=== PATIENT | female | born 1995 | race Caucasian/White ===

== ENCOUNTER 2017-10-05 04:54 | Inpatient (IN) | payer BC ==
[2017-10-05] MEDS ORDERED: Sodium Chloride 0.9% 10 ML Syringe FLUSH PRN (05:13)
[2017-10-05] MEDS ORDERED: ceFAZolin 1 GM in Premix Bag 1 BAG IV ONE (05:13)
[2017-10-05] MEDS ORDERED: Sodium Chloride 0.9% 2.5 ML Syringe FLUSH PRN (05:13)
[2017-10-05] MEDS ORDERED: Oxytocin/0.9 % Sodium Chloride 30 UNIT/500 ML BAG IV SCH (05:15)
[2017-10-05] MEDS ORDERED: Citric Acid/Sodium Citrate Solution 30 ML Cup PO SCH (05:15)
[2017-10-05] MEDS: Lactated Ringers 1,000 ML IV SCH ×4 (05:30→21:10)
[2017-10-05] MEDS ORDERED: Morphine 10 MG/ML Syringe ONE (06:48)
[2017-10-05] MEDS ORDERED: Phenylephrine 1% 10 MG/ML SDV ONE ×2 (06:49→06:54)
[2017-10-05] MEDS ORDERED: Ondansetron 4 MG/2 ML SDV ONE (06:49)
[2017-10-05] MEDS ORDERED: Morphine PF 1 MG/ML Amp ONE (07:02)
--- NOTE | 2017-10-05 07:39 | PCM.PREANE ---
Preanesthetic Assessment - Anesthesia/Transfusion/Family Hx Anesthesia History: Prior Anesthesia Without Reaction Family History of Anesthesia Reaction: No Transfusion History: No Prior Transfusion(s) - Review of Systems General: No Symptoms Pulmonary: No Symptoms Cardiovascular: No Symptoms Gastrointestinal: No Symptoms Neurological: No Symptoms Other: Reports: None - Physical Assessment NPO Status Date: 10/04/17 Height: 1.57 m Weight: 70.307 kg ASA Class: 2 Mental Status: Alert & Oriented x3 Airway Class: Mallampati = 2 Dentition: Reports: Normal Dentition ROM/Head Extension: Full Lungs: Clear to Auscultation, Normal Respiratory Effort Cardiovascular: Regular Rate, Regular Rhythm - Lab Values: Laboratory Last Values WBC 6.97 K/uL (4.0-11.0) 10/05/17 05:23 RBC 4.11 M/uL (4.30-5.90) L 10/05/17 05:23 Hgb 10.5 g/dL (12.0-16.0) L 10/05/17 05:23 Hct 34.0 % (36.0-46.0) L 10/05/17 05:23 MCV 82.7 fL (80.0-98.0) 10/05/17 05:23 MCH 25.5 pg (27.0-32.0) L 10/05/17 05:23 MCHC 30.9 g/dL (31.0-37.0) L 10/05/17 05:23 RDW Std Deviation 44.1 fl (28.0-62.0) 10/05/17 05:23 RDW Coeff of Kelly 15 % (11.0-15.0) 10/05/17 05:23 Plt Count 228 K/uL (150-400) 10/05/17 05:23 MPV 10.40 fL (7.40-12.00) 10/05/17 05:23 Nucleated RBC % 0.0 /100WBC 10/05/17 05:23 Nucleated RBCs # 0 K/uL 10/05/17 05:23 Blood Type A POSITIVE 10/05/17 05:23 Antibody Screen NEGATIVE 10/05/17 05:23 - Allergies Allergies/Adverse Reactions: Allergies Allergy/AdvReac Type Severity Reaction Status Date / Time No Known Allergies Allergy Verified 10/05/17 05:12 - Anesthesia Plan Pre-Op Medication Ordered: Antacids - Acknowledgements Anesthesia Type Planned: Spinal Pt an Appropriate Candidate for the Planned Anesthesia: Yes Alternatives and Risks of Anesthesia Discussed w Pt/Guardian: Yes Pt/Guardian Understands and Agrees with Anesthesia Plan: Yes Additional Comments: repeat elective c section 39 weeks, no problems except polyhydramnios. meds zofran and colase NKDA. npo 2100, 70 kg 5'2". 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: - Past Surgical History Head Surgeries/Procedures: Reports: None HEENT Surgical History: Reports: Oral Surgery, Tonsillectomy Other HEENT Surgeries/Procedures: [place] teeth removal Female Surgical History: Reports: Section - SUBSTANCE USE Smoking Status *Q: Never Smoker Second Hand Smoke Exposure: No Recreational Drug Use History: No - HOME MEDS Home Medications: Home Meds Ondansetron [Zofran ODT] 4 mg PO ONETIME 03/04/15 [History] PNV95/Ferrous Fumarate/FA [ Vitamins Tablet] 1 tab DAILY 03/04/15 [ History] Docusate Sodium [Colace] 1 tab PO DAILY 10/01/17 [History] - CURRENT (IN HOUSE) MEDS Current Meds: Current Medications Citric Acid/Sodium Citrate (Bicitra Solution) 30 ml PO .ONCE GEO Lactated Ringer's (Ringers, Lactated) 1,000 mls @ 500 mls/hr IV .BOLUS GEO Last Admin: 10/05/17 07:06 Dose: 150 mls/hr Oxytocin/Sodium Chloride (Oxytocin 30 Unit/500 Ml-Ns) 30 unit in 500 mls @ 250 mls/hr IV TITRATE GEO Sodium Chloride (Saline Flush) 10 ml FLUSH ASDIRECTED PRN PRN Reason: Keep Vein Open Sodium Chloride (Saline Flush) 2.5 ml FLUSH ASDIRECTED PRN PRN Reason: Keep Vein Open Discontinued Medications Cefazolin Sodium/Dextrose 1 gm (/ Premix) 50 mls @ 100 mls/hr IV ONETIME ONE Stop: 10/05/17 05:42 Cefazolin Sodium/Dextrose (Ancef) Confirm Administered Dose 50 mls @ as directed .ROUTE .STK-MED ONE Stop: 10/05/17 07:27 Morphine Sulfate (Morphine) Confirm Administered Dose 10 mg .ROUTE .[facility]-MED ONE Stop: 10/05/17 06:49 Morphine Sulfate (Duramorph Pf) Confirm Administered Dose 1 mg .ROUTE .[facility]-MED ONE Stop: 10/05/17 07:03 Ondansetron HCl (Zofran) Confirm Administered Dose 4 mg .ROUTE .[facility]-MED ONE Stop: 10/05/17 06:50 Phenylephrine HCl (Shan-Synephrine) Confirm Administered Dose 10 mg .ROUTE .[facility]- MED ONE Stop: 10/05/17 06:50 Phenylephrine HCl (Shan-Synephrine) Confirm Administered Dose 10 mg .[facility] Stop: 10/05/17 06:55
[2017-10-05] MEDS ORDERED: Midazolam 1 MG/ML 2 ML SDV ONE (08:30)
[2017-10-05] MEDS ORDERED: Oxytocin 10 Units/1 ML SDV ONE (08:30)
[2017-10-05] MEDS ORDERED: Aluminum Hydroxide/Magnesium Hydroxide/Simethicone Susp 30 ML Cup PO PRN (08:45)
[2017-10-05] MEDS ORDERED: Simethicone 80 MG Tab.Chew PO PRN (08:45)
[2017-10-05] MEDS ORDERED: Bisacodyl 10 MG Supp RECTAL PRN (08:45)
[2017-10-05] MEDS ORDERED: Ondansetron 4 MG/2 ML SDV IV PRN (08:45)
[2017-10-05] MEDS ORDERED: Acetaminophen/oxyCODONE 325-5 MG Tab PO PRN ×2 (08:45→09:00)
[2017-10-05] MEDS ORDERED: diphenhydrAMINE 50 MG/ML SDV IVPUSH PRN (08:45)
[2017-10-05] MEDS ORDERED: Lanolin 100% Cream 7 GM Tube TOP PRN (08:45)
--- NOTE | 2017-10-05 08:53 | PCM.OPNOTE ---
- General Post-Op/Procedure Note Date of Surgery/Procedure: 10/05/17 Operative Procedure(s): Repeat LTCS Findings: Term male APGARs 9, 9 weight 4280 gm. Intact placenta with 3 V cord, normal appearing pelvis Pre Op Diagnosis: Previous c section, desires repeat. Polyhydramnios, LGA fetus Post-Op Diagnosis: Same Anesthesia Technique: Spinal Primary Surgeon: Jennifer Isaac Fluid Replacement, Intraop: 1,500 EBL in mLs: 500 Complications: none known Condition: Good Free Text/Narrative:: Dictation [id number]
--- NOTE | 2017-10-05 08:57 | PCM48HPAN ---
Post Anesthesia Note - EVALUATION WITHIN 48HRS OF ANESTHETIC Vital Signs in Normal Range: Yes Patient Participated in Evaluation: Yes Respiratory Function Stable: Yes Airway Patent: Yes Cardiovascular Function Stable: Yes Hydration Status Stable: Yes Pain Control Satisfactory: Yes Nausea and Vomiting Control Satisfactory: Yes Mental Status Recovered: Yes
[2017-10-05] MEDS ORDERED: Nalbuphine 10 MG/1 ML Vial IVPUSH PRN (09:00)
[2017-10-05] MEDS ORDERED: fentaNYL 100 MCG/2 ML SDV IVPUSH PRN (09:00)
[2017-10-05] MEDS: Ketorolac 30 MG/ML SDV IVPUSH SCH ×3 (09:05→21:07)
--- NOTE | 2017-10-05 12:43 | OR ---
SURGEON: Jennifer Isaac M.D. DATE OF PROCEDURE: 10/05/2017 PREOPERATIVE DIAGNOSES: 1. A 39-week intrauterine . 2. Previous section, desires repeat. 3. Polyhydramnios and LGA fetus. PROCEDURE: Repeat low transverse section. ANESTHESIA: Spinal. ESTIMATED BLOOD LOSS: 500 mL. FLUIDS: 1500 mL crystalloid. COMPLICATIONS: None. FINDINGS: Term male, score 9 at 1 minute, 9 at 5 minute. Weight of 4280 g. Intact placenta, 3-vessel cord. Normal appearing pelvis. DISPOSITION: The patient to PACU and infant to nursery in stable condition. PROCEDURE IN DETAIL: Viv is a 22-year-old, G2, P1, at 39 weeks gestation, who presents today for scheduled repeat delivery. Risks of the procedure have been discussed with her and proper consent obtained. The patient was taken to the operating room, where she underwent spinal anesthetic, was placed in dorsal spine position, leftward tilt. SCDs lower extremities. Powell to gravity. Prepped and draped in the usual sterile fashion. Ancef was delivered via IV. Time out was performed. After being prepped and draped in the usual sterile fashion, anesthesia was tested and found to be adequate. Previous Pfannenstiel scar was now excised. Subcutaneous tissue was incised down to the level of the rectus fascia, which was incised in midline, lateralized on either side sharply and bluntly. The superior aspect of fascia was tented up, dissected sharply and bluntly away from underlying muscle. In the similar aspect, performed the inferior aspect of the fascia. Rectus muscles were in the midline, peritoneum was tented up, and entered sharply. Rectus muscle and peritoneum were now lateralized bluntly. Uterine position and position palpated. Self-retaining retractor now gently placed. Bladder flap was created sharply and bluntly. The bladder was mobilized away from the lower uterine segment. Low transverse hysterotomy was now performed. Uterine cavity was entered with the blunt end of scalpel. Amniotomy revealed a large amount of clear fluid as expected. The infant's head was flexed and fundal pressure was applied. The head was delivered followed by anterior shoulder, posterior shoulder, and remainder of the body without difficulty. The infant's oropharynx and nares bulb suctioned. Cord clamped x2 and cut. Infant was handed off to attending nursing staff. Cord arterial, cord venous, cord blood sampling was obtained. The placenta was now delivered. Uterine cavity was cleared of all clot and debris. Hysterotomy was repaired using 0 Vicryl in continuous running locked fashion followed by re-imbricating layer. Area of oozing along the midline was replicated with two [id number] sutures. Hemostasis thereafter evident. Posterior aspect of the uterus inspected, no defects or hematomas found to be forming. Regions were well irrigated, suction dried. Uterus was returned to the abdominal cavity. Colonic gutters were cleared of all clot and debris, well irrigated suction dried. Hysterotomy once again inspected and found to be hemostatic. Self-retaining retractor now gently removed. Retractors were placed. Hysterotomy once again inspected and found to be hemostatic. The rectus muscles were now reapproximated using 0 Vicryl in inverted mattress suture technique. Anterior aspect of the muscle and posterior aspect of the fascia closely inspected. Any areas of oozing were cauterized. The fascia was reapproximated using 0 Vicryl in continuous running fashion beginning laterally on either side and meeting in the midline. Subcutaneous tissue was now well irrigated and suction dried. Any areas of oozing were cauterized. The skin edges were reapproximated using 3-0 Vicryl in subcuticular fashion on a Luis needle and re-imbricated with 1/2-inch Steri-Strips Mastisol. Uterus remained firm. Hemostasis appeared evident. Sponge count, needle count, and instrument count was correct x2. The patient will go to PACU in stable condition. in nursery. ENID / LEX /[id number]
[2017-10-05] MEDS: Docusate Sodium 100 MG Cap PO SCH (21:04)
[2017-10-06] MEDS: Ketorolac 30 MG/ML SDV IVPUSH SCH ×2 (02:38→08:38)
[2017-10-06] MEDS: Docusate Sodium 100 MG Cap PO SCH ×3 (08:38→20:46)
[2017-10-06] MEDS: Acetaminophen/oxyCODONE 325-5 MG Tab PO PRN ×2 (10:22→19:34)
--- NOTE | 2017-10-06 11:06 | PCM.PNPP ---
- General Info Date of Service: 10/06/17 Functional Status: Reports: Pain Controlled, Tolerating Diet, Ambulating, Urinating - Review of Systems General: Denies: Fever, Weakness Cardiovascular: Denies: Palpitations, Lightheadedness Gastrointestinal: Reports: Abdominal Pain (incisional, pain medicine helps alleviate) Genitourinary: Denies: Flank Pain Neurological: Denies: Headache Psychiatric: Reports: No Symptoms - General Info Date of Service: 10/06/17 - Patient Data Vital Signs - Most Recent: Last Vital Signs Temp 36.9 C 10/06/17 07:40 Pulse 82 10/06/17 07:40 Resp 16 10/06/17 07:40 BP 108/63 10/06/17 07:40 Pulse Ox 97 10/06/17 07:40 Weight - Most Recent: 70.307 kg I&O - Last 24 Hours: Intake & Output 10/05/17 10/06/17 10/06/17 22:59 06:59 14:59 Intake Total 1780 Output Total 800 1500 400 Balance 980 -1500 -400 Lab Results - Last 24 Hours: Laboratory Results - last 24 hr 10/06/17 Range/Units 05:49 Hgb 9.3 L (12.0-16.0) g/dL Hct 29.9 L (36.0-46.0) % Med Orders - Current: Current Medications Al Hydroxide/Mg Hydroxide (Mag-Al Plus) 30 ml PO Q8H PRN PRN Reason: Heartburn Bisacodyl (Dulcolax) 10 mg RECTAL .ONCE PRN PRN Reason: Constipation Citric Acid/Sodium Citrate (Bicitra Solution) 30 ml PO .ONCE GEO Last Admin: 10/05/17 07:42 Dose: 30 ml Diphenhydramine HCl (Benadryl) 25 mg IVPUSH Q6H PRN PRN Reason: Itching or Nausea Last Admin: 10/05/17 12:31 Dose: 25 mg Docusate Sodium (Colace) 100 mg PO BID [facility] Last Admin: 10/06/17 09:12 Dose: Not Given Emollient Ointment (Lansinoh Hpa) 0 gm TOP ASDIRECTED PRN PRN Reason: Sore Nipples Lactated Ringer's (Ringers, Lactated) 1,000 mls @ 500 mls/hr IV .BOLUS [facility] Last Admin: 10/05/17 07:06 Dose: 150 mls/hr Oxytocin/Sodium Chloride (Oxytocin 30 Unit/500 Ml-Ns) 30 unit in 500 mls @ 250 mls/hr IV TITRATE [facility] Lactated Ringer's (Ringers, Lactated) 1,000 mls @ 125 mls/hr IV ASDIRECTED [facility] Last Admin: 10/05/17 21:10 Dose: 125 mls/hr Ibuprofen (Motrin) 800 mg PO Q8H PRN PRN Reason: mild pain or fever Ondansetron HCl (Zofran) 4 mg IV Q4H PRN PRN Reason: Nausea/Vomiting Oxycodone/Acetaminophen (Percocet 325-5 Mg) 1 tab PO Q4H PRN PRN Reason: Pain (moderate 4-6) Oxycodone/Acetaminophen (Percocet 325-5 Mg) 2 tab PO Q4H PRN PRN Reason: Pain (moderate 4-6) Last Admin: 10/06/17 10:22 Dose: 2 tab Oxycodone/Acetaminophen (Percocet 325-5 Mg) 1 tab PO ONETIME PRN PRN Reason: Pain (moderate 4-6) Simethicone (Simethicone) 80 mg PO Q4H PRN PRN Reason: Gas Sodium Chloride (Saline Flush) 10 ml FLUSH ASDIRECTED PRN PRN Reason: Keep Vein Open Sodium Chloride (Saline Flush) 2.5 ml FLUSH ASDIRECTED PRN PRN Reason: Keep Vein Open Discontinued Medications Fentanyl (Sublimaze) 50 mcg IVPUSH Q5M PRN PRN Reason: Pain (severe 7-10) Stop: 10/06/17 09:01 Cefazolin Sodium/Dextrose 1 gm (/ Premix) 50 mls @ 100 mls/hr IV ONETIME ONE Stop: 10/05/17 05:42 Last Admin: 10/06/17 00:36 Dose: Not Given Cefazolin Sodium/Dextrose (Ancef) Confirm Administered Dose 50 mls @ as directed .ROUTE .STK-MED ONE Stop: 10/05/17 07:27 Ketorolac Tromethamine (Toradol) 30 mg IVPUSH Q6H [facility] Stop: 10/06/17 08:46 Last Admin: 10/06/17 08:38 Dose: 30 mg Midazolam HCl (Versed 1 Mg/Ml) Confirm Administered Dose 2 mg .ROUTE .STK-MED ONE Stop: 10/05/17 08:31 Morphine Sulfate (Morphine) Confirm Administered Dose 10 mg .ROUTE .STK-MED ONE Stop: 10/05/17 06:49 Morphine Sulfate (Duramorph Pf) Confirm Administered Dose 1 mg .ROUTE .STK-MED ONE Stop: 10/05/17 07:03 Nalbuphine HCl (Nubain) 2.5 mg IVPUSH Q3H PRN PRN Reason: Pruritis Stop: 10/06/17 09:01 Ondansetron HCl (Zofran) Confirm Administered Dose 4 mg .ROUTE .STK-MED ONE Stop: 10/05/17 06:50 Oxytocin (Pitocin) Confirm Administered Dose 20 unit .ROUTE .STK-MED ONE Stop: 10/05/17 08:31 Phenylephrine HCl (Shan-Synephrine) Confirm Administered Dose 10 mg .ROUTE .STK- MED ONE Stop: 10/05/17 06:50 Phenylephrine HCl (Shan-Synephrine) Confirm Administered Dose 10 mg .ROUTE .STK- MED ONE Stop: 10/05/17 06:55 - Infant Interaction Infant Disposition, : in Room with Family Support Person: - Recovery Exam Fundal Tone: Firm Fundal Level: 1 Fingerbreadths Below Umbilicus Fundal Placement: Midline Lochia Amount: Scant Lochia Color: Rubra/Red Perineum Description: Intact, Minimal Bruising/Swelling Episiotomy/Laceration: None Bladder Status: Indwelling Catheter in Place Urinary Elimination: Indwelling Catheter - Exam General: Alert, Oriented Lungs: Normal Respiratory Effort Cardiovascular: Regular Rate, Regular Rhythm GI/Abdominal Exam: Normal Bowel Sounds, Soft, No Distention. No: Guarding, Rigid Extremities: Pedal Edema (trace) Skin: Warm, Dry, Intact Wound/Incisions: Healing Well, No Drainage. No: Erythema Psy/Mental Status: Alert, Normal Affect - Problem List & Annotations (1) delivery delivered SNOMED Code(s): 634710175 Code(s): O82 - ENCOUNTER FOR DELIVERY WITHOUT INDICATION Status: Acute Current Visit: Yes - Problem List Review Problem List Initiated/Reviewed/Updated: Yes - My Orders Last 24 Hours: My Active Orders 10/05/17 Dinner Regular Diet [DIET] - Assessment Assessment:: POD 1 status post repeat LTCS - Plan Plan:: Continue postoperative cares, ambulate halls today. Stable overall.
[2017-10-06] MEDS: Ibuprofen 800 MG Tab PO PRN ×2 (14:21→22:41)
[2017-10-07] MEDS: Acetaminophen/oxyCODONE 325-5 MG Tab PO PRN (05:51)
--- NOTE | 2017-10-07 08:59 | PCM.PNPP ---
- General Info Date of Service: 10/07/17 Functional Status: Reports: Pain Controlled, Tolerating Diet, Ambulating, Urinating - Review of Systems General: Denies: Fever Pulmonary: Denies: Shortness of Breath Cardiovascular: Denies: Chest Pain, Palpitations, Lightheadedness Gastrointestinal: Denies: Diarrhea, Nausea, Vomiting Genitourinary: Denies: Flank Pain Psychiatric: Reports: No Symptoms - General Info Date of Service: 10/07/17 - Patient Data Vital Signs - Most Recent: Last Vital Signs Temp 36.4 C 10/07/17 05:30 Pulse 70 10/07/17 05:30 Resp 17 10/07/17 05:30 BP 111/71 10/07/17 05:30 Pulse Ox 98 10/07/17 05:30 Weight - Most Recent: 70.307 kg Med Orders - Current: Current Medications Al Hydroxide/Mg Hydroxide (Mag-Al Plus) 30 ml PO Q8H PRN PRN Reason: Heartburn Bisacodyl (Dulcolax) 10 mg RECTAL .ONCE PRN PRN Reason: Constipation Citric Acid/Sodium Citrate (Bicitra Solution) 30 ml PO .ONCE [facility] Last Admin: 10/05/17 07:42 Dose: 30 ml Diphenhydramine HCl (Benadryl) 25 mg IVPUSH Q6H PRN PRN Reason: Itching or Nausea Last Admin: 10/05/17 12:31 Dose: 25 mg Docusate Sodium (Colace) 100 mg PO BID GEO Last Admin: 10/06/17 20:46 Dose: 100 mg Emollient Ointment (Lansinoh Hpa) 0 gm TOP ASDIRECTED PRN PRN Reason: Sore Nipples Lactated Ringer's (Ringers, Lactated) 1,000 mls @ 500 mls/hr IV .BOLUS [facility] Last Admin: 10/05/17 07:06 Dose: 150 mls/hr Oxytocin/Sodium Chloride (Oxytocin 30 Unit/500 Ml-Ns) 30 unit in 500 mls @ 250 mls/hr IV TITRATE GEO Lactated Ringer's (Ringers, Lactated) 1,000 mls @ 125 mls/hr IV ASDIRECTED [facility] Last Admin: 10/05/17 21:10 Dose: 125 mls/hr Ibuprofen (Motrin) 800 mg PO Q8H PRN PRN Reason: mild pain or fever Last Admin: 10/06/17 22:41 Dose: 800 mg Ondansetron HCl (Zofran) 4 mg IV Q4H PRN PRN Reason: Nausea/Vomiting Oxycodone/Acetaminophen (Percocet 325-5 Mg) 1 tab PO Q4H PRN PRN Reason: Pain (moderate 4-6) Last Admin: 10/06/17 14:21 Dose: 1 tab Oxycodone/Acetaminophen (Percocet 325-5 Mg) 2 tab PO Q4H PRN PRN Reason: Pain (moderate 4-6) Last Admin: 10/07/17 05:51 Dose: 2 tab Oxycodone/Acetaminophen (Percocet 325-5 Mg) 1 tab PO ONETIME PRN PRN Reason: Pain (moderate 4-6) Simethicone (Simethicone) 80 mg PO Q4H PRN PRN Reason: Gas Sodium Chloride (Saline Flush) 10 ml FLUSH ASDIRECTED PRN PRN Reason: Keep Vein Open Sodium Chloride (Saline Flush) 2.5 ml FLUSH ASDIRECTED PRN PRN Reason: Keep Vein Open Discontinued Medications Fentanyl (Sublimaze) 50 mcg IVPUSH Q5M PRN PRN Reason: Pain (severe 7-10) Stop: 10/06/17 09:01 Cefazolin Sodium/Dextrose 1 gm (/ Premix) 50 mls @ 100 mls/hr IV ONETIME ONE Stop: 10/05/17 05:42 Last Admin: 10/06/17 00:36 Dose: Not Given Cefazolin Sodium/Dextrose (Ancef) Confirm Administered Dose 50 mls @ as directed .ROUTE .STK-MED ONE Stop: 10/05/17 07:27 Ketorolac Tromethamine (Toradol) 30 mg IVPUSH Q6H GEO Stop: 10/06/17 08:46 Last Admin: 10/06/17 08:38 Dose: 30 mg Midazolam HCl (Versed 1 Mg/Ml) Confirm Administered Dose 2 mg .ROUTE .STK-MED ONE Stop: 10/05/17 08:31 Morphine Sulfate (Morphine) Confirm Administered Dose 10 mg .ROUTE .STK-MED ONE Stop: 10/05/17 06:49 Morphine Sulfate (Duramorph Pf) Confirm Administered Dose 1 mg .ROUTE .STK-MED ONE Stop: 10/05/17 07:03 Nalbuphine HCl (Nubain) 2.5 mg IVPUSH Q3H PRN PRN Reason: Pruritis Stop: 10/06/17 09:01 Ondansetron HCl (Zofran) Confirm Administered Dose 4 mg .ROUTE .STK-MED ONE Stop: 10/05/17 06:50 Oxytocin (Pitocin) Confirm Administered Dose 20 unit .ROUTE .STK-MED ONE Stop: 10/05/17 08:31 Phenylephrine HCl (Shan-Synephrine) Confirm Administered Dose 10 mg .ROUTE .STK- MED ONE Stop: 10/05/17 06:50 Phenylephrine HCl (Shan-Synephrine) Confirm Administered Dose 10 mg .ROUTE .STK- MED ONE Stop: 10/05/17 06:55 - Infant Interaction Infant Disposition, : [place] in Room with Family Support Person: - Recovery Exam Fundal Tone: Firm Fundal Level: 1 Fingerbreadths Below Umbilicus Fundal Placement: Midline Lochia Amount: Scant Lochia Color: Rubra/Red Perineum Description: Intact, Minimal Bruising/Swelling Episiotomy/Laceration: None Bladder Status: Voiding Urinary Elimination: Indwelling Catheter - Exam General: Alert, Oriented Lungs: Normal Respiratory Effort Cardiovascular: Regular Rate, Regular Rhythm GI/Abdominal Exam: Normal Bowel Sounds, Non-Tender Extremities: Pedal Edema (trace) Skin: Warm, Dry, Intact Wound/Incisions: No Drainage. No: Erythema Psy/Mental Status: Alert, Normal Affect - Problem List & Annotations (1) delivery delivered SNOMED Code(s): 724850530 Code(s): O82 - ENCOUNTER FOR DELIVERY WITHOUT INDICATION Status: Acute Current Visit: Yes - Problem List Review Problem List Initiated/Reviewed/Updated: Yes - My Orders Last 24 Hours: My Active Orders 10/07/17 08:57 Ready for Discharge [RC] PER UNIT ROUTINE - Assessment Assessment:: POD 2 status post repeat LTCS - Plan Plan:: Discharge to home today. [facility]. Infection and bleeding warnings reviewed. Discharge instructions reviewed.
[2017-10-07] MEDS: Docusate Sodium 100 MG Cap PO SCH (09:36)
[2017-10-07] MEDS: Ibuprofen 800 MG Tab PO PRN (09:49)
[2017-10-07 10:19] VITALS: BP 122/77
== END 2017-10-07 11:25 | disposition home or self-care (01) | DRG 540 ==
LOC: MW.OB 04:54
PROVIDERS: ADMIT Obstetrics & Gynecology; ATTEND Obstetrics & Gynecology
PROC: 10D00Z1 Extraction of Products of Conception, Low, Open Approach (ICD-10-PCS; principal; 2017-10-05)
DX: O40.3XX0 Polyhydramnios, third trimester, not applicable or unspecified (principal); O36.63X0 Maternal care for excessive fetal growth, third trimester, not applicable or unspecified; Z3A.39 39 weeks gestation of pregnancy; Z37.0 Single live birth
CPT/HCPCS: 01961; 36415; 59025; 85014; 85018; 85027; 86850; 86900; 86901; A9270-GY; J0690; J1200; J1885; J2250; J2270; J2274; J2370; J2405; J2590; J7120